=== PATIENT | female | born 1965 | race Caucasian/White ===

== ENCOUNTER → 2020-07-10 13:24 | Outpatient (CLI) | payer BC, SELFPAY ==
--- NOTE | ~2020-07-10 | MM_ITS ---
EXAMINATION: MM screening [facility] BI w manoj HISTORY: Screening mammogram TECHNIQUE: Craniocaudal and mediolateral oblique 3-D tomosynthesis images were obtained and synthetic 2-D images were generated. CAD analysis was submitted and interpreted. COMPARISON: 06/06/2019, 05/10/2018 BREAST PARENCHYMAL COMPOSITION: There are scattered areas of fibroglandular density. FINDINGS: There is no evidence of suspicious mass, calcification, or architectural distortion to sugg est malignancy in either breast. There has been no suspicious interval change. IMPRESSION: 1. No mammographic evidence of malignancy. 2. Recommend routine screening mammography in one year. BI-RADS Category 1: Negative Reviewed, dictated and finalized at location A. TILE INSTALLER
== END ==
PROVIDERS: PCP Family Medicine; Visit Provider Family Medicine
DX: Z12.31 Encounter for screening mammogram for malignant neoplasm of breast (principal)
CPT/HCPCS: 77063; 77067

== ENCOUNTER → 2021-01-24 07:33 | Outpatient (CLI) | payer BC, SELFPAY ==
--- NOTE | ~2021-01-24 | XR_ITS ---
. EXAMINATION: XR knee RT 3V DATE: 01/24/2021 07:59 INDICATION: Right knee pain TECHNIQUE: [place] and weight bearing anteroposterior, oblique and lateral views of the right knee we re obtained COMPARISON: None. FINDINGS: Alignment is normal. No fracture. Mild joint space narrowing with small marginal osteophytes in the patellofemoral compartment. Relatively preserved joint space in the medial lateral compartment with t iny marginal osteophytes along the lateral tibial plateau. No joint effusion/layering lipohemarthrosi s. Soft tissues are unremarkable. IMPRESSION: 1. Right knee osteoarthritis, mild in the patellofemoral compartment and minimal in the lateral olga rtment Reviewed, dictated and finalized at location A. IMPRESSION: 1. Right knee osteoarthritis, mild in the patellofemoral compartment and minima l in the lateral compartment
--- NOTE | ~2021-01-24 | XR_ITS ---
EXAMINATION: XR ankle LT min 3V DATE: 01/24/2021 07:59 INDICATION: Chronic left ankle pain TECHNIQUE: Anteroposterior, oblique, mortise, and lateral views of the left ankle were obtained. COMPARISON: None. FINDINGS: Old fracture of the distal left fibula which is healed in essentially anatomic alignment with interfr agmentary screw and lateral plate and screw fixation. No other fractures. Tibiotalar osteoarthritis w ith moderate to severe lateral side predominant nonuniform joint space narrowing and mild subarticula r cystic change at the lateral aspect of the tibial plafond. Joint spaces in the visualized left foot are relatively preserved. Small plantar calcaneal spur. Soft tissues are unremarkable. No left ankle joint effusion. IMPRESSION: 1. 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 2. Old healed internally fixed fracture of the distal left fibula which is in essentially anatomic al ignment. Reviewed, dictated and finalized at location A. IMPRESSION: 1. 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 2. Old healed internally fixed fracture of the distal left fibula which is in e ssentially anatomic alignment.
== END ==
PROVIDERS: PCP Family Medicine
DX: M25.572 Pain in left ankle and joints of left foot (principal); M17.11 Unilateral primary osteoarthritis, right knee
CPT/HCPCS: 73562; 73610

== ENCOUNTER → 2021-05-20 11:24 | Outpatient (CLI) | payer BC, SELFPAY ==
--- NOTE | ~2021-05-20 | XR_ITS ---
EXAMINATION: XR shoulder RT min 2V EXAM DATE: 05/20/2021 11:49 INDICATION: Pain in right shoulder. TECHNIQUE: The following right shoulder projections obtained: frontal projection with internal rotati on, frontal projection with external rotation, [place], and axillary (4+ views). There is no prior s tudy for comparison. FINDINGS: No evidence of right shoulder rotator cuff calcific tendinosis. There is minimal glenohu meral joint, mild to moderate acromioclavicular joint primary osteoarthritis. There are no acute frac tures or dislocations identified. There is no subcutaneous gas. The soft tissue is unremarkable. There are no radiopaque foreign bodies. IMPRESSION: Mild to moderate right acromioclavicular joint osteoarthritis. Reviewed, dictated and finalized at location B.
== END ==
PROVIDERS: PCP Family Medicine
DX: M19.011 Primary osteoarthritis, right shoulder (principal)
CPT/HCPCS: 73030

== ENCOUNTER → 2021-08-05 11:22 | Outpatient (CLI) | payer BC, SELFPAY ==
--- NOTE | ~2021-08-05 | MM_ITS ---
EXAMINATION: MM screening [facility] BI w manoj HISTORY: Screening TECHNIQUE: Craniocaudal and mediolateral oblique 3-D tomosynthesis images were obtained and synthetic 2-D images were generated. CAD analysis was submitted and interpreted. COMPARISON: Comparison to multiple prior studies sequentially, with oldest reviewed study dated 04/25. BREAST PARENCHYMAL COMPOSITION: There are scattered areas of fibroglandular density. FINDINGS: There is no evidence of suspicious mass, calcification, or architectural distortion to sugg est malignancy in either breast. There has been no suspicious interval change. IMPRESSION: 1. No mammographic evidence of malignancy. 2. Recommend routine screening mammography in one year. BI-RADS Category 1: Negative Reviewed, dictated and finalized at location A. [employer]NMAKER [employer]OD
== END ==
PROVIDERS: PCP Family Medicine; Visit Provider Family Medicine
DX: Z12.31 Encounter for screening mammogram for malignant neoplasm of breast (principal)
CPT/HCPCS: 77063; 77067

== ENCOUNTER → 2021-09-02 09:10 | Outpatient (CLI) | payer BC, SELFPAY ==
--- NOTE | ~2021-09-02 | US_ITS ---
US breast BI complete INDICATION: Family history of breast cancer. Recent normal screening mammogram. TECHNIQUE: Dedicated complete bilateral breast ultrasound including all 4 quadrants in the subareolar locations. COMPARISON: Mammogram dated 08/05/2021 FINDINGS: The breasts are composed of normal heterogeneous echotexture without focal solid or cystic mass. IMPRESSION: 1: Normal bilateral breast ultrasound. Routine yearly screening mammogram and regular clinical breast examination are recommended. BI-RADS CATEGORY 1 - NEGATIVE Reviewed, dictated and finalized at location A. R AND DELIVERY REGISTERED NURSE
== END ==
PROVIDERS: PCP Family Medicine; Visit Provider Family Medicine
DX: Z80.3 Family history of malignant neoplasm of breast (principal)
CPT/HCPCS: 76641

== ENCOUNTER → 2022-12-30 12:55 | Outpatient (CLI) | payer BC, SELFPAY ==
--- NOTE | ~2022-12-30 | DEXA_ITS ---
Bone Density Report Name: PRAVEENA SANCHEZ Age: 57 Sex: Female Ethnicity: White Date of : 1965 Indication: postmenopausal; screening for osteoporosis; height loss; hysterectomy; Referring Provider: LYNNCORNELIO Study: Bone densitometry was performed. Exam Date: December 30, 2022 Accession number: [id number] Bone Density: Region BMD T-score Z-score Classification AP Spine (L1-L4) 0.891 -1.4 0.0 Osteopenia Femoral Neck (Left) 0.575 -2.5 -1.2 Osteoporosis Total Hip (Left) 0.695 -2.0 -1.1 Osteopenia Femoral Neck (Right) 0.565 -2.6 -1.3 Osteoporosis Total Hip (Right) 0.687 -2.1 -1.2 Osteopenia Total Hip Mean 0.691 -2.1 -1.2 Osteopenia World Health Organization criteria for BMD impression classify patients as: Normal (T-score at or above -1.0), Osteopenia (T-score between -1.0 and -2.5), or Osteoporosis (T-score at or below -2.5). 10-year Fracture Risk: FRAX not reported because: Some T-score for Spine Total or Hip Total or Femoral Neck at or below -2.5 Clinical Information Provided by Patient: Has used the following medications: Calcium Has the following medical conditions: Hysterectomy Patient maximum height was 66.5 Menopause Age: 29 No regular weight bearing exercise Drinks caffeinated beverages Onset of menses at age 10 Number of children 1 Impression: The patient has osteoporosis, based on the Right Femoral Neck T-score. Discussion: INCREASED RISK OF FRACTURE. BONE DENSITY IS UNDESIRABLY LOW AT ONE OR MORE SKELETAL SITES, CONSISTENT WITH POSTMENOPAUSAL OSTEOPOROSIS. This patient's lowest T-score meets the World Health Organization's (WHO) criteria for osteoporosis at one or more sites (T-score -2.5 or below). In untreated patients, the risk of osteoporotic fracture increases approximately two-fold for each 1.0 SD decrease in T-score. Low bone density is not the only risk factor for fracture; also consider factors such as patient's age, frailty or poor health, risk of falling, risk of injury, previous osteoporotic fracture, family history of osteoporosis, cigarette smoking, low body weight, etc. Not everyone with low bone mineral density has osteoporosis; osteomalacia and other metabolic bone disorders should also be considered. Patients who have osteoporosis should be evaluated for specific diseases and conditions (secondary causes) that may cause or contribute to bone loss. The [place] [employer]ocrinologists (AACE) and National Osteoporosis Foundation (NOF) recommend pharmacologic intervention for all postmenopausal women whose T-score is in this range. The patient should follow a healthful lifestyle (good nutrition with adequate calcium and vitamin D, and appropriate weight-bearing exercise). Follow-Up: Consider a repeat BMD and Vertebral Fracture Assessment (VFA) exam in 2 years or s
--- NOTE | ~2022-12-30 | MM_ITS ---
EXAMINATION: MM screening [facility] BI w manoj HISTORY: Screening TECHNIQUE: Craniocaudal and mediolateral oblique 3-D tomosynthesis images were obtained and synthetic 2-D images were generated. CAD analysis was submitted and interpreted. COMPARISON: Comparison to multiple prior studies sequentially, with oldest reviewed study dated 04/25. BREAST PARENCHYMAL COMPOSITION: There are scattered areas of fibroglandular density. FINDINGS: There is no evidence of suspicious mass, calcification, or architectural distortion to sugg est malignancy in either breast. There has been no suspicious interval change. IMPRESSION: 1. No mammographic evidence of malignancy. 2. Recommend routine screening mammography in one year. BI-RADS Category 1: Negative Reviewed, dictated and finalized at location A.
== END ==
PROVIDERS: PCP Family Medicine; Visit Provider Family Medicine
DX: Z12.31 Encounter for screening mammogram for malignant neoplasm of breast (principal); M85.88 Other specified disorders of bone density and structure, other site; Z78.0 Asymptomatic menopausal state; M81.0 Age-related osteoporosis without current pathological fracture; M85.852 Other specified disorders of bone density and structure, left thigh; M85.851 Other specified disorders of bone density and structure, right thigh
CPT/HCPCS: 77063; 77067; 77080

== ENCOUNTER 2024-05-31 07:38 | Outpatient (CLI) | payer BC, SELFPAY ==
--- NOTE | ~2024-05-31 | MM_ITS ---
EXAMINATION: MM screening [facility] BI w manoj HISTORY: Screening TECHNIQUE: Craniocaudal and mediolateral oblique 3-D tomosynthesis images were obtained and synthetic 2-D images were generated. CAD analysis was submitted and interpreted. COMPARISON: Comparison to multiple prior studies sequentially, with oldest reviewed study dated 04/25. BREAST PARENCHYMAL COMPOSITION: Not dense: There are scattered areas of fibroglandular density. FINDINGS: There is no evidence of suspicious mass, calcification, or architectural distortion to sugg est malignancy in either breast. There has been no suspicious interval change. IMPRESSION: 1. No mammographic evidence of malignancy. 2. Recommend routine screening mammography in one year. BI-RADS Category 1: Negative Reviewed, dictated and finalized at location B. ERER
== END 2024-05-31 07:39 | disposition home or self-care (01) ==
LOC: ANHIMG 07:40
PROVIDERS: PCP Family Medicine; Visit Provider Family Medicine
DX: Z12.31 Encounter for screening mammogram for malignant neoplasm of breast (principal)
CPT/HCPCS: 77063; 77067